=== PATIENT | female | born 1945 | race African-American/Black ===

== ENCOUNTER 2019-08-15 17:19 | Inpatient (IN) | payer MEDICARE, BC ==
[~2019-08-15] VITALS: Ht 160 cm; Wt 57.2 kg
[2019-08-15] MEDS ORDERED: ONDANSETRON 4MG ODT PO STA (18:20)
[2019-08-15] MEDS ORDERED: KETOROLAC 60MG/2ML VIAL IM STA (18:20)
[2019-08-15 19:02] LABS: BASOPHILS % 0.5 % (0.0-2.0); HEMATOCRIT. 40.9 % (36.0-48.0); HEMOGLOBIN. 13.3 g/dL (12.0-16.0); LYMPHOCYTES % 10.7 % (20.0-50.0); MEAN CORPUSCULAR HEMOGLOBIN 27.8 pg (28.0-32.0); MEAN CORPUSCULAR VOLUME 85.6 fL (81.0-99.0); MEAN PLATELET VOLUME 10.3 fl (7.4-10.4); MONOCYTES % 3.4 % (2.0-8.0); NEUTROPHILS % 85.4 % (40.0-76.0); PLATELET 228 x1000/uL (130-400); RED BLOOD CELL COUNT 4.78 mill/uL (4.2-5.4); RED CELL DISTRIBUTION WIDTH 13.2 % (11.6-14.6)
[2019-08-15 19:12] LABS: CHLORIDE 108 mEq/L (98-107)
[2019-08-15 19:45] LABS: CLARITY URINE CLEAR (CLEAR); COLOR URINE YELLOW (YELLOW); KETONES URINE TRACE (NEGATIVE); LEUKOCYTE ESTERASE URINE NEGATIVE (NEGATIVE); NITRITE URINE NEGATIVE (NEGATIVE); OCCULT BLOOD URINE 3+ (NEGATIVE); PH URINE 5.5 (4.5-8.0); PROTEIN URINE NEGATIVE (NEGATIVE); SPECIFIC GRAVITY URINE 1.019 (1.005-1.030); UROBILINOGEN URINE 0.2 E.U./dL (0.2-1.0)
[2019-08-15] MEDS ORDERED: SODIUM CHLORIDE 0.9% 1,000 ML IV ONE (20:57)
[2019-08-15] MEDS ORDERED: NITROGLYCERIN 0.4MG TABLET SL SL PRN (21:15)
[2019-08-15] MEDS ORDERED: ZOLPIDEM TARTRATE 5MG TABLET PO PRN (21:15)
[2019-08-15] MEDS ORDERED: ACETAMINOPHEN 325MG TABLET PO PRN (21:15)
[2019-08-15] MEDS ORDERED: MAGNESIUM/ALUMINUM HYDROXIDE/SIMETHICONE 30ML UDC PO PRN (21:15)
[2019-08-15] MEDS ORDERED: IPRATROPIUM/ALBUTEROL 0.5-3(2.5)MG/3ML NEB NEB PRN (21:15)
[2019-08-15] MEDS ORDERED: GUAIFENESIN 200MG/10ML SUGAR FREE UDC PO PRN (21:15)
[2019-08-15] MEDS ORDERED: CLONIDINE 0.1MG TABLET PO PRN (21:15)
[2019-08-15] MEDS ORDERED: LORAZEPAM 0.5MG TABLET PO PRN (21:15)
[2019-08-15] MEDS ORDERED: DOCUSATE SODIUM 100MG CAPSULE PO PRN (21:15)
[2019-08-15] MEDS ORDERED: MORPHINE SULFATE 2 MG/ML CPJ (NOT FOR IM USE) IV ONE (22:00)
[2019-08-15] MEDS: SODIUM CHLORIDE 0.9% 1,000 ML IV SCH (22:30)
[2019-08-15] MEDS ORDERED: KETOROLAC 15MG/ML VIAL IV PRN (22:36)
[2019-08-15] MEDS ORDERED: LEVOFLOXACIN 500MG PREMIX 100 ML IV NR (22:37)
[2019-08-15] MEDS: ONDANSETRON HCL 4MG/2ML INJ IV PRN (22:54)
[2019-08-15 23:33] LABS: CREATINE KINASE 107 IU/L (26-192)
[2019-08-15 23:34] LABS: CREATINE KINASE MB FRACTION < 1.0 ng/mL (0.5-3.6)
[2019-08-16] VITALS: BP 129/68
[2019-08-16] MEDS ORDERED: CEFTRIAXONE 1 G PREMIX 50 ML IV SCH (01:00)
[2019-08-16 01:33] VITALS: BP 129/68
[2019-08-16 04:00] VITALS: BP 135/62
[2019-08-16 07:39] LABS: CREATINE KINASE 84 IU/L (26-192)
[2019-08-16 07:40] LABS: CREATINE KINASE MB FRACTION < 1.0 ng/mL (0.5-3.6)
[2019-08-16 08:00] VITALS: BP 121/73
[2019-08-16] MEDS: ENOXAPARIN 30MG/0.3ML SYR SUBCUT SCH (09:00)
[2019-08-16] MEDS ORDERED: ENOXAPARIN 40MG/0.4ML SYR SUBCUT SCH (09:00)
[2019-08-16] MEDS: ZINC SULFATE 220 MG ( 50 ) CAPSULE PO SCH (09:20)
[2019-08-16] MEDS: ASCORBIC ACID 500 MG TABLET PO SCH ×2 (09:21→20:59)
[2019-08-16] MEDS: TAMSULOSIN HCL 0.4MG SR CAPSULE PO SCH (09:21)
[2019-08-16] MEDS: FAMOTIDINE 20MG TABLET PO SCH (09:21)
[2019-08-16] MEDS: SODIUM CHLORIDE 0.9% 1,000 ML IV SCH (09:22)
[2019-08-16] MEDS: LEVOFLOXACIN 250MG PREMIX 50 ML IV SCH (09:22)
[2019-08-16 12:00] VITALS: BP 133/69
[2019-08-16] MEDS ORDERED: GENTAMICIN SULF 40MG/ML 2ML VIAL ONE (12:15)
[2019-08-16] MEDS ORDERED: LIDOCAINE HCL/EPINEPHRINE 1%-EPI 1:100,000 20 ML VIAL ONE (12:16)
[2019-08-16] MEDS ORDERED: NORMAL SALINE 0.9% 10 ML SYR ONE (12:16)
[2019-08-16] MEDS ORDERED: BACITRACIN 50,000 UNITS/VIAL ONE (12:16)
[2019-08-16] MEDS ORDERED: PROPOFOL 200MG/20ML VIAL IV ONE (16:20)
[2019-08-16] MEDS ORDERED: ROCURONIUM BROMIDE 10MG/ML VIAL 5ML IV ONE (16:20)
[2019-08-16] MEDS ORDERED: SODIUM CHLORIDE 0.9% 10ML VIAL ONE (16:20)
[2019-08-16] MEDS ORDERED: FENTANYL CITRATE/PF 50MCG/ML 2ML VIAL ONE (16:20)
[2019-08-16] MEDS ORDERED: MIDAZOLAM HCL 2 MG/2 ML VIAL ONE (16:20)
[2019-08-16] MEDS ORDERED: EPHEDRINE SULFATE 50MG/ML VIAL ONE (16:20)
[2019-08-16] MEDS ORDERED: LIDOCAINE HCL/PF 1% 10 MG/ML 5ML VIAL ONE (16:21)
[2019-08-16] MEDS ORDERED: PHENYLEPHRINE HCL 10 MG/ML 1ML (IV VIAL) IV ONE (16:57)
[2019-08-16] MEDS ORDERED: GLYCOPYRROLATE 0.2 MG/ML 2ML VIAL ONE (16:59)
[2019-08-16] MEDS ORDERED: ONDANSETRON HCL 4MG/2ML INJ ONE (17:06)
[2019-08-16] MEDS ORDERED: HYDROCORTISONE SOD SUCCINATE 100 MG/2 ML VIAL ONE (17:06)
[2019-08-16] MEDS ORDERED: IOHEXOL-300 100 ML BOTTLE ONE (17:34)
[2019-08-16] MEDS ORDERED: FLUMAZENIL 0.1 MG/ML 5ML VIAL IV ONE (18:28)
[2019-08-16 20:00] VITALS: BP 145/67
[2019-08-16] MEDS ORDERED: LEVOFLOXACIN 500MG PREMIX 100 ML IV SCH (21:00)
[2019-08-17] VITALS: BP 118/67
[2019-08-17] MEDS: CEFTRIAXONE 1 G PREMIX 50 ML IV SCH (01:17)
[2019-08-17] MEDS: LEVOFLOXACIN 250MG PREMIX 50 ML IV SCH (03:24)
[2019-08-17] MEDS: SODIUM CHLORIDE 0.9% 1,000 ML IV SCH ×2 (03:26→11:03)
[2019-08-17 04:00] VITALS: BP 146/78
[2019-08-17] MEDS: ONDANSETRON HCL 4MG/2ML INJ IV PRN ×3 (05:19→18:15)
[2019-08-17 08:00] VITALS: BP 148/72
[2019-08-17] MEDS: ENOXAPARIN 30MG/0.3ML SYR SUBCUT SCH (08:51)
[2019-08-17] MEDS: ASCORBIC ACID 500 MG TABLET PO SCH ×2 (08:51→20:17)
[2019-08-17] MEDS: ZINC SULFATE 220 MG ( 50 ) CAPSULE PO SCH (08:52)
[2019-08-17] MEDS: FAMOTIDINE 20MG TABLET PO SCH (08:52)
[2019-08-17] MEDS: TAMSULOSIN HCL 0.4MG SR CAPSULE PO SCH (08:52)
[2019-08-17] MEDS: DILTIAZEM HCL 60MG TABLET PO SCH ×2 (11:02→17:23)
[2019-08-17 12:00] VITALS: BP 145/64
[2019-08-17 16:00] VITALS: BP 125/68
[2019-08-17 20:00] VITALS: BP 127/69
[2019-08-18] VITALS: BP 142/77
[2019-08-18] MEDS: DILTIAZEM HCL 60MG TABLET PO SCH ×2 (00:47→06:38)
[2019-08-18] MEDS: SODIUM CHLORIDE 0.9% 1,000 ML IV SCH ×2 (00:48→09:14)
[2019-08-18] MEDS: ONDANSETRON HCL 4MG/2ML INJ IV PRN (01:04)
[2019-08-18] MEDS: CEFTRIAXONE 1 G PREMIX 50 ML IV SCH (01:27)
[2019-08-18 04:00] VITALS: BP 129/63
[2019-08-18] MEDS: LEVOFLOXACIN 250MG PREMIX 50 ML IV SCH (04:42)
[2019-08-18 06:03] LABS: BASOPHILS % 0.5 % (0.0-2.0); EOSINOPHILS % 2.1 % (0.0-5.0); HEMATOCRIT. 36.5 % (36.0-48.0); HEMOGLOBIN. 12.2 g/dL (12.0-16.0); LYMPHOCYTES % 26.4 % (20.0-50.0); MEAN CORPUSCULAR HEMOGLOBIN 28.3 pg (28.0-32.0); MEAN CORPUSCULAR VOLUME 84.7 fL (81.0-99.0); MEAN PLATELET VOLUME 10.4 fl (7.4-10.4); MONOCYTES % 8.1 % (2.0-8.0); NEUTROPHILS % 62.9 % (40.0-76.0); PLATELET 190 x1000/uL (130-400); RED BLOOD CELL COUNT 4.31 mill/uL (4.2-5.4); RED CELL DISTRIBUTION WIDTH 13.2 % (11.6-14.6)
[2019-08-18 06:35] LABS: CHLORIDE 113 mEq/L (98-107)
[2019-08-18 06:41] LABS: LDL CHOLESTEROL 90 mg/dL (5-100)
[2019-08-18 06:43] LABS: HDL CHOLESTEROL 43 mg/dL (40-59)
[2019-08-18] MEDS: ASCORBIC ACID 500 MG TABLET PO SCH (09:12)
[2019-08-18] MEDS: FAMOTIDINE 20MG TABLET PO SCH (09:13)
[2019-08-18] MEDS: TAMSULOSIN HCL 0.4MG SR CAPSULE PO SCH (09:13)
[2019-08-18] MEDS: ZINC SULFATE 220 MG ( 50 ) CAPSULE PO SCH (09:13)
[2019-08-18] MEDS: ENOXAPARIN 30MG/0.3ML SYR SUBCUT SCH (09:14)
[2019-08-18 10:19] VITALS: BP 139/67
== END 2019-08-18 11:35 | disposition home or self-care (01) | DRG 853 ==
LOC: ER 17:19 → 6EST 20:45 → SUPCPDRO 21:01 → EDBEDREQTM 21:02 → EDBEDREQSVC 21:02 → EDBEDREQ 21:02 → ENRESERV 22:55
PROVIDERS: ADMIT Internal Medicine; ATTEND Internal Medicine
PROC: 0TF68ZZ Fragmentation in Right Ureter, Via Natural or Artificial Opening Endoscopic (ICD-10-PCS; principal; 2019-08-16)
PROC: 0T768DZ Dilation of Right Ureter with Intraluminal Device, Via Natural or Artificial Opening Endoscopic (ICD-10-PCS; 2019-08-16)
PROC: BT1D1ZZ Fluoroscopy of Right Kidney, Ureter and Bladder using Low Osmolar Contrast (ICD-10-PCS; 2019-08-16)
DX: A41.9 Sepsis, unspecified organism (principal); N17.0 Acute kidney failure with tubular necrosis; N13.6 Pyonephrosis; N20.1 Calculus of ureter; I10 Essential (primary) hypertension; E78.00 Pure hypercholesterolemia, unspecified; Z87.442 Personal history of urinary calculi; Z88.5 Allergy status to narcotic agent; Z88.8 Allergy status to other drugs, medicaments and biological substances
CPT/HCPCS: 36415; 74176; 74420; 80053; 80061; 81003; 82550; 82553; 83036; 83735; 84484; 85025; 93306; 93970; 96374; 99285; C1758; C1769; C2617; J0696; J1580; J1650; J1720; J1885; J1956; J2250; J2270; J2370; J2405; J2704; J3010; J3490; J7030; Q0162; Q9967